=== PATIENT | female | born 1995 | race Caucasian/White ===

== ENCOUNTER 2018-01-17 23:12 | Emergency (ER) | payer MEDICAID ==
--- NOTE | 2018-01-17 23:26 | EDPHY ---
H & P Stated Complaint: bilat flank pain with recent uti Time Seen by Provider: 01/17/18 23:26 HPI/ROS: HPI CHIEF COMPLAINT: UTI HISTORY OF PRESENT ILLNESS: Patient very pleasant 22-year-old female, she is otherwise healthy denies any significant medical history she developed a urinary tract infection approximately 5 days ago she was started on Bactrim by her primary care doctor she completed a five-day course however continues to have dysuria and now some very low-grade back pain. She denies any fever, denies abdominal pain, denies vomiting. Denies generalized weakness. Decided come the emergency room as she thinks she may still have UTI. Past Medical History: Denies medical history Past Surgical History: Denies surgical history Social History: Denies daily use of drugs alcohol tobacco. Family History: Noncontributory ROS REVIEW OF SYSTEMS: A comprehensive 10 point review of systems is otherwise negative aside from elements mentioned in the history of present illness. Exam Constitutional nontoxic appearing in no acute distress triage nursing summary reviewed, vital signs reviewed, awake/alert. Eyes normal conjunctivae and sclera, EOMI, PERRLA. HENT normal inspection, atraumatic, moist mucus membranes, no epistaxis, neck supple/ no meningismus, no raccoon eyes. Respiratory clear to auscultation bilaterally, normal breath sounds, no respiratory distress, no wheezing. Cardiovascular rate normal, regular rhythm, no murmur, no edema, distal pulses normal. Gastrointestinal soft, non-tender, no rebound, no guarding, normal bowel sounds, no distension, no pulsatile mass. Genitourinary I cannot appreciate CVA tenderness on exam. Musculoskeletal no midline vertebral tenderness, full range of motion, no calf swelling, no tenderness of extremities, no meningismus, good pulses, neurovascularly intact. Skin pink, warm, & dry, no rash, skin atraumatic. Neurologic awake, alert and oriented x 3, AAOx3, moves all 4 extremities equally, motor intact, sensory intact, CN II-XII intact, normal cerebellar, normal vision, normal speech. Psychiatric normal mood/affect. Heme/Lymph/Immune no lymphadenopathy. Differential Diagnosis: Includes but is not limited to in a particular order UTI, cystitis, pyelonephritis, ongoing UTI , resistant to Bactrim. Medical Decision Making: Plan for this patient check UA, urine culture. If urinalysis does indicate a UTI will start oral Keflex and peridium. Ibuprofen 800 mg here for pain control. Re-evaluation: 1224: Re-evaluation at this time patient resting comfortably no acute distress. Urinalysis does show UTI. Will start on Keflex, peridium. Return precautions discussed with her. She understands return emergency room if develops worsening abdominal pain fever vomiting , worsening back pain, worsening urinary symptoms. Source: Patient - Personal History LMP (Females 10-55): 1-7 Days Ago Current Tetanus/Diphtheria Vaccine: Yes Current Tetanus Diphtheria and Acellular Pertussis (TDAP): Yes - Medical/Surgical History Hx Asthma: No Hx Chronic Respiratory Disease: No Hx Diabetes: No Hx Cardiac Disease: No Hx Renal Disease: No Hx Cirrhosis: No Hx Alcoholism: No Hx HIV/AIDS: No Hx Splenectomy or Spleen Trauma: No - Social History Smoking Status: Never smoked Constitutional: Initial Vital Signs Temperature (C) 36.4 C 01/17/18 23:15 Heart Rate 79 01/17/18 23:15 Respiratory Rate 18 01/17/18 23:15 Blood Pressure 132/68 H 01/17/18 23:15 O2 Sat (%) 97 01/17/18 23:15 O2 Delivery Mode Room Air Allergies/Adverse Reactions: No Known Allergies Allergy (Unverified 01/17/18 23:14) Home Medications: Medication Instructions Recorded Bactrim DS 01/17/18 Cephalexin [Keflex] 500 mg PO Q6H #28 cap 01/17/18 Ibuprofen [Motrin (*)] 800 mg PO Q6-8PRN #14 tab 01/17/18 Medical Decision Making - Data Points Laboratory Results: 01/17/18 23:20 Urine Color YELLOW Urine Appearance MODERATELY TURBID Urine pH 5.0 (5.0-7.5) Ur Specific [place] 1.013 (1.002-1.030) Urine Protein NEGATIVE (NEGATIVE) Urine Ketones NEGATIVE (NEGATIVE) Urine Blood 1+ H (NEGATIVE) Urine Nitrate NEGATIVE (NEGATIVE) Urine Bilirubin NEGATIVE (NEGATIVE) Urine Urobilinogen NEGATIVE EU EU (0.2-1.0) Ur Leukocyte Esterase 3+ H (NEGATIVE) Urine RBC 5-10 /hpf H /hpf (0-3) Urine WBC 50-182 /hpf H /hpf (0-3) Ur Epithelial Cells TRACE /lpf /lpf (NONE-1+) Urine Bacteria TRACE /hpf H /hpf (NONE SEEN) Urine Glucose NEGATIVE (NEGATIVE) Medications Given: Discontinued Medications Cephalexin (Keflex 500 Mg Prepack#4) 1 btl TAKEHOME EDNOW ONE PRN Reason: Protocol Stop: 01/17/18 23:37 Last Admin: 01/17/18 23:55 Dose: 1 btl Cephalexin HCl (Keflex) 500 mg PO EDNOW ONE PRN Reason: Protocol Stop: 01/17/18 23:37 Last Admin: 01/17/18 23:54 Dose: 500 mg Ibuprofen (Motrin) 800 mg PO EDNOW ONE Stop: 01/17/18 23:37 Last Admin: 01/17/18 23:53 Dose: 800 mg Phenazopyridine HCl (Pyridium) 200 mg PO EDNOW ONE Stop: 01/17/18 23:37 Last Admin: 01/17/18 23:52 Dose: 200 mg Departure - Departure Disposition: Home, Routine, Self-Care Clinical Impression: Urinary tract infection Condition: Good Instructions: Urinary Tract Infection in Women (ED) Additional Instructions: 1. Drink lots of fluids stay well-hydrated. 2. Take antibiotics as prescribed. 3. Return emergency room if he develops worsening urinary symptoms abdominal pain, back pain, fever, vomiting. Referrals: NONE *PRIMARY CARE P,. [Primary Care Provider] - As per Instructions Prescriptions: Cephalexin [Keflex] 500 mg PO Q6H #28 cap Ibuprofen [Motrin (*)] 800 mg PO Q6-8PRN #14 tab
[2018-01-17] MEDS ORDERED: CEPHALEXIN 500MG PREPACK#4 BTL TAKEHOME ONE (23:36)
[2018-01-17] MEDS ORDERED: CEPHALEXIN 500 MG CAP PO ONE (23:36)
[2018-01-17] MEDS ORDERED: IBUPROFEN 800 MG TAB PO ONE (23:36)
[2018-01-17] MEDS ORDERED: PHENAZOPYRIDINE HCL 200 MG TAB PO ONE (23:36)
[2018-01-18 00:32] VITALS: BP 118/58
== END 2018-01-18 00:31 | disposition home or self-care (01) ==
DX: N39.0 Urinary tract infection, site not specified (principal); B96.20 Unspecified Escherichia coli [E. coli] as the cause of diseases classified elsewhere